=== PATIENT | female | born 1975 | race Hispanic/Latino ===

== ENCOUNTER 2018-01-17 15:17 | Outpatient (CLI) | payer BC ==
--- NOTE | 2018-01-17 17:06 | MRI ---
LEFT KNEE MRI WITHOUT IV CONTRAST: 01/17/18 HISTORY: 42-year-old female with history of internal derangement left knee. Three weeks left knee pain. Multiplanar, multisequence MRI examination of the knee is performed. There is some irregular femoral patellar cartilage loss with some subchondral cystic changes of both the patella and trochlear groove . There are multiple clustered cysts noted within the central and medial aspect of Hoffa's fat and ex tending caudally along the anterior aspect of the medial tibial plateau. Possibly numerous ganglion c ysts which I favor over the parameniscal cysts. There are some intrasubstance degenerative signal maikel nges involving the medial meniscus but no evidence for an overt acute meniscal tear. The lateral meni scus appears unremarkable. The anterior and posterior cruciate ligaments, collateral ligament complex es, and quadriceps and patellar tendons are intact. No significant acute osteochondral defect or abno rmal marrow signal. IMPRESSION: Some femoral patellar areas of cartilage thinning and subchondral cystic changes. Numerous multiple l obulated or multiloculated cystic changes within the posterior medial Hoffa's fat and extending cauda lly along the anterior aspect of the medial tibia down to the level of the metaphysis, I favor these representing multiple ganglion cysts. Conceivably this could represent some type of a vascular malfor mation. Degenerative changes of both medial and lateral menisci without evidence for acute meniscal t ears. No evidence for other significant acute internal derangement. Consideration for followup postco ntrast knee MRI might give additional information. It would certainly exclude the possibility of this area of multiloculated cystic appearing change to represent any type of a vascular abnormality. POS: TPC
== END 2018-01-17 15:18 | disposition home or self-care (01) ==
LOC: TBSIIMAG 15:17
PROVIDERS: ATTEND Orthopaedic Surgery
DX: M23.92 Unspecified internal derangement of left knee (principal); M23.201 Derangement of unspecified lateral meniscus due to old tear or injury, left knee; M23.204 Derangement of unspecified medial meniscus due to old tear or injury, left knee

== ENCOUNTER 2018-03-09 09:35 | Day surgery (SDC) | payer BC ==
[2018-03-08 13:57] VITALS: BMI 32.6
[2018-03-09] MEDS ORDERED: PROPOFOL 20 ML ONE (10:12)
[2018-03-09] MEDS ORDERED: CEFAZOLIN 2 GM/50 ML BAG ONE (10:28)
[2018-03-09 10:40] LABS: #Eosinphils 0.1 thou/uL (0.0-0.7); #Lymphocytes 1.7 thou/uL (1.20-3.40); #Monocytes 0.5 thou/uL (0.11-0.59); #Neutrophils 3.5 thou/uL (1.40-6.50); %Basophils 0.6 % (0.0-1.0); %Eosinophils 1.6 % (0.0-10.0); %Lymphocytes 28.7 % (21.0-51.0); %Monocytes 8.8 % (0.0-10.0); %Neutrophils 60.3 % (42.0-75.0); Hemoglobin 12.8 g/dL (12.0-16.0); Mean Corpuscular Hemoglobin 28.6 pg (27.0-31.0); Mean Corpuscular Volume 86.8 fL (78.0-98.0); Mean Platelet Volume 7.2 fL (7.4-10.4); Platelet Count 313 thou/uL (130-400); RBC Distribution Width 11.6 % (11.5-14.5); Red Blood Cell (RBC) Count 4.48 mill/uL (4.20-5.40); White Blood Cell (WBC) Count 5.8 thou/uL (4.8-10.8)
[2018-03-09] MEDS ORDERED: Bupivacaine HCl 0.5%/Epinephrine 1:200,000/PF 30 ml Vial ONE (12:07)
[2018-03-09] MEDS ORDERED: Lidocaine 2% w/Epinephrine 1:200K 20 ML VIAL ONE (12:07)
[2018-03-09] MEDS ORDERED: Lidocaine 1% PF 5 ML VIAL ONE (12:29)
[2018-03-09] MEDS ORDERED: Ketorolac Tromethamine 30 MG/ML VIAL ONE (12:29)
[2018-03-09] MEDS ORDERED: Ondansetron PF 4 MG/2 ML Vial ONE (12:29)
[2018-03-09] MEDS ORDERED: PROPOFOL 200 MG/20 ML VIAL ONE (12:29)
[2018-03-09] MEDS ORDERED: Fentanyl 100 MCG/2 ML VIAL ONE ×3 (12:47→14:05)
--- NOTE | 2018-03-09 13:59 | OP ---
DATE OF PROCEDURE: 03/09/2018 PREOPERATIVE DIAGNOSES: Left knee with some ganglionic tissue in the fat pad that goes through and w as found to be on top of the anteromedial tibia next to the patellar tendon. POSTOPERATIVE DIAGNOSES: 1. 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 The area to the trochlea also had grade 4 changes. 2. Small ganglionic mass noted on the anteromedial proximal tibia next to the patellar tendon. PROCEDURE PERFORMED: Knee arthroscopy with debridement and shaving followed by open removal of gangl ionic tissue in the left tibia. SURGEON: Paul Sandy M.D. RESIDENTIAL TREATMENT SPECIALIST: None. BLOOD LOSS: Minimal. COMPLICATIONS: None. We did send the tissue that was removed to pathology for evaluation. ANESTHESIA: She had a general anesthetic as well as a local knee block. DISCHARGE CONDITION: She went to recovery room in stable condition. INDICATIONS: This is a 42-year-old female who comes in complaining of some exquisite pain on occasio n. In between she may not have so much pain, but there are certain times she has significant pain. An MRI was done which showed her to have some fibrotic fat pad and a ganglion which emanated from the fat pad and went out of the joint distally to rest along the anteromedial tibia next to the patellar tendon. At this time, she opted to have surgery. DESCRIPTION OF PROCEDURE: After all appropriate consent forms were explained and signed, she was seymour en to the operating room and at this time was given general anesthetic. Once anesthesia was appropri ate, the patient had a tourniquet placed on the left thigh and leg was placed in an arthroscopic leg colin. The limb was then prepped and draped in standard surgical fashion. Limb was exsanguinated a nd tourniquet was taken to 300 mmHg. An inferolateral portal was then established and the scope was placed into the knee joint. Needle localization technique was then used to perform diagnostic arthro scopy. The scope started in the notch. ACL and PCL probed and found to be intact. In the medial co mpartment there was 7-8 mm vertical area of some grade II chondromalacia with no unstable chondral fl aps. The medial compartment was in good condition. The lateral compartment showed the femur to be i n good condition as well as a lateral meniscus. There was a grade 2 lesion on the lateral tibial mimi teau. We then swept through both gutters. There were some small cartilaginous loose bodies which we re removed with the suction shaver and there was a larger area of damage noted on the trochlea, inclu ding a central grade 4 lesion and there was also some significant changes on the back side of the pat arvind. Again, all loose chondral flaps were removed with the shaver device. We also removed a signif icant amount of fat pad until we got down to what appeared to be good fat and we used the surface tata rgy afterwards to try and limit postoperative hemarthrosis. At this time, the scope was removed and the knee was drained. We then made a longitudinal medial incision medial to the patellar tendon and tibial tubercle down through skin and fat. Bovie was used to clean any brisk venous bleeding. At th is time, underneath the fascia a small ganglion was noted and at this time we tried to dissect out th is ganglion from the underlying tissue. This went essentially down to periosteum and we removed the ganglion tissue periosteum and the ganglion and some fat in one specimen After this was removed from the joint this was sent for full pathology. Brisk venous bleeding was coagulated. There was no oth er obvious area of ganglionic tissue there at this time. Some deep Vicryls were used to close some s oft tissue followed by some 2-0 Vicryl was used to close the subcutaneous fat and nylon sutures were used for skin. Bulky sterile dressing was then applied. Tourniquet was let down. Her toes pinked u p nicely. She was awakened. She was taken to the recovery room in stable condition. All counts wer e correct at the end of the case. She did receive preoperative IV antibiotics.
[2018-03-09] MEDS ORDERED: HYDROcodone/Acetaminophen 5/325 mg Tablet ONE (14:40)
[2018-03-09] MEDS ORDERED: Promethazine HCl 25 MG/ML VIAL ONE (15:58)
--- NOTE | 2018-03-14 08:14 | EKG ---
Test Reason : PREOP Blood Pressure : / mmHG Vent. Rate : 069 BPM Atrial Rate : 069 BPM P-R Int : 164 ms QRS Dur : 094 ms QT Int : 422 ms P-R-T Axes : 025 -20 010 degrees QTc Int : 452 ms Normal sinus rhythm Normal ECG No previous ECGs available Confirmed by DR. Emeterio MANCERA ([id number]) on 03/14/2018 8:14:07 AM Referred By: IERO Confirmed By:DR. Emeterio MANCERA
--- NOTE | 2018-03-22 09:47 | PQF ---
[facility] POST DISCHARGE CLINICAL DOCUMENTATION IMPROVEMENT CLARIFICATION FORM l Todays Date: 03/20/18 l Patients Name CHINO CLARK l l Admit Date 03/09/18 l Disch Date 03/09/18 Supervisory Historian Name Mic Reyes Email: [email or web address] Cell: [phone] To be completed by Supervisory Historian: Present Clinical Indicators - Signs / Symptoms Results and Location in Medical Record [ ] Documentation of: [ ] [ ] Documentation of: [ ] [ ] Documentation of: [ ] [ ] Documentation of: [ ] [ ] Risks [ ] [ ] [ ] Treatment [ ] GANGLION CYST L KNEE QUERY FOR SIZE OF EXCISED LESION WITH MARGINS [ ] [ ] To be completed by Physician: SCHUYLER MOSES The documentation in this patients record requires clarification to ensure coding compliance and accuracy. Check the appropriate box and include in your discharge summary. [ ] [ ] [ ] [ ] Please check this box if this does not apply to this patient [ ] Unable to determine [ ] Other diagnosis: Review the following information and exercise your independent professional judgment in responding to the clarification. Based upon the clinical findings, risk factors, and treatment, please clarify if you are treating one of the above probable or suspected diagnoses. Physician Signature: Date Time MTDD
== END 2018-03-09 16:40 | disposition home or self-care (01) ==
LOC: SDC 09:35
PROVIDERS: ATTEND Orthopaedic Surgery
PROC: 0SBD4ZZ Excision of Left Knee Joint, Percutaneous Endoscopic Approach (ICD-10-PCS; principal; 2018-03-09)
PROC: 0SBD0ZZ Excision of Left Knee Joint, Open Approach (ICD-10-PCS; principal; 2018-03-09)
DX: M67.462 Ganglion, left knee (principal); M94.262 Chondromalacia, left knee; M23.42 Loose body in knee, left knee; M23.8X2 Other internal derangements of left knee; Z88.1 Allergy status to other antibiotic agents
CPT/HCPCS: 36415; 85025; 88304; 93005; 93010; 96374; 96375; G8978-GP-CJ; G8979-GP-CJ; G8980-GP-CJ; J0670; J1885; J2001; J2405; J2550; J2704; J3010

== ENCOUNTER 2018-03-22 13:41 | Outpatient (CLI) | payer BC ==
--- NOTE | 2018-03-22 14:54 | ULT ---
ULTRASOUND WITH DOPPLER DUPLEX VENOUS LOWER EXTREMITY LEFT: Date: 03/22/18 HISTORY: 42-year-old female with left lower extremity pain and edema. TECHNIQUE: Color flow Doppler, spectral waveform analysis of pulsed Doppler, and warner-scale imaging with caryl alvin and augmentation, were used to evaluate the left common femoral, femoral, popliteal, posterior t ibial, and superficial femoral, veins; and the proximal portions of the profunda femoral and greater saphenous, veins. FINDINGS: There is normal compressibility, demonstration of blood flow by color Doppler and pulsed Doppler, and response to augmentation, in all interrogated veins. IMPRESSION: Negative. No deep vein thrombosis in the left lower extremity. jn[] POS: CET
== END 2018-03-22 13:42 | disposition home or self-care (01) ==
LOC: ULT 13:41
PROVIDERS: ATTEND Orthopaedic Surgery
DX: M79.89 Other specified soft tissue disorders (principal)

== ENCOUNTER 2020-02-16 08:22 | Emergency (ER) | payer BC, OTHER ==
[2020-02-16 09:21] LABS: #Basophils 0.1 thou/uL (0.0-0.2); #Eosinphils 0.8 thou/uL (0.0-0.7); #Lymphocytes 1.6 thou/uL (1.20-3.40); #Monocytes 0.7 thou/uL (0.11-0.59); #Neutrophils 6.2 thou/uL (1.40-6.50); %Basophils 0.7 % (0.0-1.0); %Eosinophils 8.5 % (0.0-10.0); %Lymphocytes 17.3 % (21.0-51.0); %Monocytes 7.8 % (0.0-10.0); %Neutrophils 65.8 % (42.0-75.0); Hemoglobin 14.9 g/dL (12.0-16.0); Mean Corpuscular HGB CONC 34.7 g/dL (32.0-36.0); Mean Corpuscular Hemoglobin 29.8 pg (27.0-31.0); Mean Corpuscular Volume 85.7 fL (78.0-98.0); Mean Platelet Volume 7.6 fL (7.4-10.4); Platelet Count 316 thou/uL (130-400); RBC Distribution Width 12.5 % (11.5-14.5); Red Blood Cell (RBC) Count 5.01 mill/uL (4.20-5.40); White Blood Cell (WBC) Count 9.4 thou/uL (4.8-10.8)
[2020-02-16 09:37] LABS: BHCG - Serum Negative (NEGATIVE); Pregs Control Background? CLEAR/WHITE (CLR/WHITE); Pregs Control Bar Appear? YES (CONTROL BAR)
[2020-02-16 09:39] LABS: ALT (SGPT) 27 U/L (8-55); AST (SGOT) 21 U/L (5-34); Albumin 4.4 g/dL (3.5-5.0); Alkaline Phosphatase 87 U/L (40-110); Anion Gap 14 mmol/L (10-20); BUN (Urea Nitrogen) 9 mg/dL (7.0-18.7); Bilirubin, Total 1.1 mg/dL (0.2-1.2); CK (CPK) 102 U/L (29-168); Calc. Creatinine Clearance 0 mL/min (70-130); Calcium 9.3 mg/dL (7.8-10.44); Carbon Dioxide 24 mmol/L (22-29); Chloride 103 mmol/L (98-107); Estimated GFR-MDRD 72; Globulin 3.5 g/dL (2.4-3.5); Glucose 101 mg/dL (70-105); Lipase 20 U/L (8-78); Potassium 3.9 mmol/L (3.5-5.1); Protein, Total 7.9 g/dL (6.0-8.3); Sodium 137 mmol/L (136-145)
[2020-02-16] MEDS ORDERED: Iopamidol-370 76% 500 ML 1 ML ONE (10:12)
--- NOTE | 2020-02-16 11:06 | CT ---
CTA Angio Chest W WO Con History: Pulmonary embolism. Shortness of breath Comparison: None. Findings: CT angiogram chest performed after the intravenous administration of contrast. 3-D renderin g provided. No proximal segmental pulmonary arterial filling defect. No significant pericardial effusion. No medi astinal adenopathy. No internal mammary or axillary adenopathy. Upper abdomen is unremarkable. Lungs are clear. No pneumothorax. No effusion. No consolidation. Thoracic spine is intact. No acute displaced rib fracture. Impression: No pulmonary embolism or other acute intrathoracic abnormality.
== END 2020-02-16 11:48 | disposition home or self-care (01) ==
LOC: ERS 08:22
DX: R06.00 Dyspnea, unspecified (principal); Z86.19 Personal history of other infectious and parasitic diseases; J45.909 Unspecified asthma, uncomplicated; Z79.51 Long term (current) use of inhaled steroids
CPT/HCPCS: 36415; 71275; 80053; 82550; 83690; 83880; 84484; 84703; 85025; 93005; Q9967